=== PATIENT | female | born 1960 | race Caucasian/White ===

== ENCOUNTER 2019-12-27 07:54 | Outpatient (CLI) | payer OTHER, SELFPAY ==
--- NOTE | 2019-12-27 15:50 | DI.MAMMO_ITS ---
EXAM: MG MAMMO SCREENING CLINICAL HISTORY: SCREENING, Z12.31 TECHNIQUE: Bilateral full field digital CC and MLO mammographic images were obtained with 3D tomosyn thesis and utilizing computer aided detection (CAD). COMPARISON: Available for comparison. FINDINGS: Masses/Architectural Distortion: None seen. Microcalcifications: No suspicious pleomorphic-type are seen. Skin Thickening/Nipple Retraction: None. IMPRESSION: 1. No significant interval change with no specific features of malignancy noted. 2. Unless there is more urgent need, screening mammography is recommended, as per [employer] guidelines. BI-RADS Category 1 - Negative Breast Density - Category B - Scattered areas of fibroglandular density A negative radiographic report should not delay biopsy if a dominant or clinically suspicious mass is present. Up to ten percent of cancers are not identified on mammography. A negative report may reinforce clinical impression. Adenosis and dense breasts may obscure an underlying neoplasm. False positive reports average 6 to 10%. Patient will receive a letter notifying them of these results.
== END 2019-12-27 08:14 ==
PROVIDERS: PCP Family Medicine Adult Medicine; Visit Provider General Practice
DX: Z12.31 Encounter for screening mammogram for malignant neoplasm of breast (principal)
CPT/HCPCS: 77063; 77067

== ENCOUNTER 2020-12-27 03:59 | Outpatient (CLI) | payer BC, SELFPAY ==
--- NOTE | 2020-12-27 | DI.MAMMO_ITS ---
Exam(s) MAMMO SCREENING EXAM: MAMMO SCREENING CLINICAL HISTORY: SCREENING, Z12.31 TECHNIQUE: Mammograms were interpreted according to the usual protocol including computer analysis w [employer] CAD system, tomosynthesis and C-view imaging. COMPARISON: FINDINGS: The breasts are of moderate density with fairly symmetrical distribution of fibroglandular tissue. N o dominant mass or clumped microcalcification is identified in either breast. The current examinatio n is compared with previous examinations including December 2019 and there is increased prominence of a fo giacomo area asymmetric density projected in the central portion of the right breast on the MLO view, thi s may also be present medially on the CC view. Additional mammographic views of the right breast are requested including CC and MLO spot compression views to rule out a new mass. No other significant change seen. IMPRESSION: Additional mammographic views of the right breast requested as described above. Breast ultrasound ma y be indicated as well depending on the results of the additional mammographic views. BI-RADS Category 0 - Assessment Incomplete: Need additional imaging evaluation Breast Density - Category B - Scattered areas of fibroglandular density
== END 2020-12-27 04:19 ==
PROVIDERS: PCP Family Medicine Adult Medicine; Visit Provider General Practice
DX: Z12.31 Encounter for screening mammogram for malignant neoplasm of breast (principal)
CPT/HCPCS: 77063; 77067

== ENCOUNTER 2021-01-02 01:36 | Outpatient (CLI) | payer BC, SELFPAY ==
--- NOTE | 2021-01-02 | DI.US_ITS ---
Exam(s) US BREAST RT LIMITED EXAM: US BREAST RT LIMITED CLINICAL HISTORY: F/U MAMMO, INCREASED ASYMMETRIC DENSITY, ? MASS. TECHNIQUE: Limited ultrasound of the right breast was performed. COMPARISON: Prior mammograms were reviewed. ALSO REVIEWED TODAY'S DIAGNOSTIC RIGHT BREAST MAMMOGRAM FINDINGS: There are no ultrasound findings correspond to the area of possible concern seen on the mammogram. T his is commensurate with the fact that this area is less concerning on the additional spot compressio n 3D mammographic views performed today prior to performing this ultrasound. However, there are 2 small microcysts noted, both measuring 3 millimeters, these located at the 12:00 to 1:00 positions. These are not seen on 3D mammography. IMPRESSION: Benign findings as described above. Appropriate follow-up is to keep this patient yearly mammogram schedule, with earlier imaging if a se lf detected breast change is noted BI-RADS Category 2 - Benign Findings Breast Density - Category B - Scattered areas of fibroglandular density Breast density Category C or D implies that the patient has dense breast tissue. Dense breast tissue can make it harder to find cancer on a mammogram. Dense breast tissue is also associated with an incr eased risk of breast cancer. This information about the result of the mammogram report was provided to the patient to raise their awareness. Use this report when you speak with the patient about their risks for breast cancer, which includes their family history. At that time, you may recommend additional screening tests (Ultrasoun d or MRI) as these tests may add significant information. A negative radiographic report should not delay biopsy if a dominant or clinically suspicious mass is present. Up to ten percent of cancers are not identified on mammography. A negative report may reinforce clinical impression. Adenosis and dense breasts may obscure an underlying neoplasm. False positive reports average 6 to 10%. Patient will receive a letter notifying them of these results.
--- NOTE | 2021-01-02 13:50 | DI.MAMMO_ITS ---
Exam(s) MAMMO SCREEN CALL BACK UNI EXAM: MAMMO SCREEN CALL BACK UNI CLINICAL HISTORY: F/U MAMMO, INCREASED ASYMMETRIC DENSITY,? NEW MASS. TECHNIQUE: Unilateral spot mammographic images were obtained with 3D tomosynthesis and utilizing com puter aided detection (CAD). . Limited right breast Ultrasound was also performed. COMPARISON: Prior mammograms were reviewed. This additional imaging was performed due to findings described on the recent screening mammogram of . FINDINGS: Additional mammographic views performed todayrender this area less concerning. Ultrasound performed today reveals no focal ultrasound findings at this location. However, there are 2 small microcysts evident, both measuring 3 millimeters, these at the 12 o'clock and 1 o'clock posi tions. See separate breast ultrasound report IMPRESSION: No radiographic evidence of malignancy. Benign ultrasound findings as described above and on the separate ultrasound report Appropriate follow-up is to keep this patient yearly mammogram schedule, with earlier imaging if a se lf detected breast change is noted. BI-RADS Category 2 - Benign Findings Breast Density - Category B - Scattered areas of fibroglandular density Breast density Category C or D implies that the patient has dense breast tissue. Dense breast tissue can make it harder to find cancer on a mammogram. Dense breast tissue is also associated with an incr eased risk of breast cancer. This information about the result of the mammogram report was provided to the patient to raise their awareness. Use this report when you speak with the patient about their risks for breast cancer, which includes their family history. At that time, you may recommend additional screening tests (Ultrasoun d or MRI) as these tests may add significant information. A negative radiographic report should not delay biopsy if a dominant or clinically suspicious mass is present. Up to ten percent of cancers are not identified on mammography. A negative report may reinforce clinical impression. Adenosis and dense breasts may obscure an underlying neoplasm. False positive reports average 6 to 10%. Patient will receive a letter notifying them of these results.
== END 2021-01-02 01:56 ==
PROVIDERS: PCP Family Medicine Adult Medicine; Visit Provider General Practice
DX: Z12.31 Encounter for screening mammogram for malignant neoplasm of breast (principal); R92.8 Other abnormal and inconclusive findings on diagnostic imaging of breast; N60.11 Diffuse cystic mastopathy of right breast
CPT/HCPCS: 76642; 77063; 77067

== ENCOUNTER 2021-02-25 11:07 | Outpatient (CLI) | payer BC, SELFPAY ==
[2021-02-27 11:30] LABS: COVID-19 RT-PCR UVMMC Result Negative (Negative)
== END 2021-02-25 11:08 | disposition home or self-care (01) ==
PROVIDERS: PCP Family Medicine Adult Medicine; Visit Provider Family Medicine Adult Medicine
DX: Z20.822 Contact with and (suspected) exposure to COVID-19 (principal)
CPT/HCPCS: U0003

== ENCOUNTER → 2022-01-01 02:25 | Outpatient (CLI) | payer BC, SELFPAY ==
--- NOTE | 2022-01-01 15:10 | DI.MAMMO_ITS ---
Exam(s) MAMMO SCREENING EXAM: MAMMO SCREENING CLINICAL HISTORY: SCREENING, Z12.31 TECHNIQUE: Bilateral full field digital CC and MLO mammographic images were obtained with 3D tomosyn thesis and utilizing computer aided detection (CAD). COMPARISON: Available for comparison. FINDINGS: Masses/Architectural Distortion: None seen. Microcalcifications: No suspicious pleomorphic-type are seen. Skin Thickening/Nipple Retraction: None. IMPRESSION: 1. No significant interval change with no specific features of malignancy noted. 2. Unless there is more urgent need, screening mammography is recommended, as per [employer] guidelines. BI-RADS Category 1 - Negative Breast Density - Category B - Scattered areas of fibroglandular density Breast density category C or D implies that the patient has dense breast tissue. Dense breast tissue is very common and is not abnormal but dense breast tissue can make it harder to find cancer on a ma mmogram. Also, dense breast tissue may increase their breast cancer risk. This information about the result of the mammogram report was provided to the patient to raise their awareness. Use this report when you speak with the patient about their risks for breast cancer, which includes their family hist ory. At that time, you may recommend for more screening tests (Ultrasound or MRI) as they might be us eful based on their risk. A negative radiographic report should not delay biopsy if a dominant or clinically suspicious mass is present. Up to ten percent of cancers are not identified on mammography. A negative report may reinforce clinical impression. Adenosis and dense breasts may obscure an underlying neoplasm. False positive reports average 6 to 10%. Patient will receive a letter notifying them of these results.
== END ==
PROVIDERS: PCP Family Medicine Adult Medicine; Visit Provider General Practice
DX: Z12.31 Encounter for screening mammogram for malignant neoplasm of breast (principal)
CPT/HCPCS: 77063; 77067

== ENCOUNTER 2022-10-20 18:30 | Emergency (ER) | payer OTHER, SELFPAY ==
[2022-10-20 18:31] VITALS: BP 159/82; PULSE 84; RESP 16; TEMP 36.7; O2SAT 96
--- OUTSIDE RECORDS SUMMARY | 2022-10-20 19:03 | XMS_ITS ---
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 Active 568803031 Problem Ulcerative (chronic) pancolitis without complications K51.00 Active 404631387 Problem Vitamin B deficiency, unspecified E53.9 Active 15694469 Problem Adjustment disorder with anxiety F43.22 Active 35643783 Problem Vitamin D deficiency, unspecified E55.9 Active 99984319 Problem Postmenopausal atrophic vaginitis N95.2 Active 81825856 Problem Generalized anxiety disorder F41.1 Active 32547843 Problem Ileostomy status Z93.2 Active 9131873 02 Problem Crohn's disease of both small and large intestine with fistula K50.813 Active [id number] 2 ALLERGIES Substance Reaction Event Type Date Status Sulfur Unknown Drug Allergy Apr, Active ENCOUNTERS Encounter Location Date Diagnosis [facility] [address] [place] [address] Sep, Sprain of ligaments of lumbar spine, initial encounter S33.5XXA [address] [address] Jul, Sprain of ligaments of lumbar spine, initial encounter S33.5XXA [address] [place] [address] 08 Apr, 2022 Abnormal finding of blood chemistry, unspecified R79.9 ; Orthostatic hypotension I95.1 ; Ulcerative (chronic) pancolitis without complications K51.00 ; Generalized anxiety disorder F41.1 and Dizziness and giddiness R42 [address] [place] [address] 04 Mar, 2022 Sprain of ligaments of lumbar spine, initial encounter S33.5XXA [address] [place] [address] 12 Nov, 2021 Sprain of ligaments of lumbar spine, initial encounter S33.5XXA [address] [place] [address] 10 Oct, 2021 Encounter for general adult medical examination without abnormal findings Z00.00 ; Encounter for screening mammogram for malignant neoplasm of breast Z12.31 ; Vitamin B deficiency, unspecified E53.9 ; Vitamin D deficiency, unspecified E55.9 ; Acute upper respiratory infection, unspecified J06.9 ; Generalized anxiety disorder F41.1 and Sprain of ligaments of lumbar spine, initial encounter S33.5XXA [address] [place] [address] 03 Aug, 2021 Cough, unspecified R05.[address] [place] [address] 19 Jun, [address] [place] [address] 12 May, [address] [place] [address] 22 Apr, [address] [place] [address] 19 Feb, 2021 Contact with and (suspected) exposure to COVID-19 Z20.[address] [place] [address] December, [address] [place] [address] 10 Oct, 2020 Encounter for general adult medical examination without abnormal findings Z00.00 ; Encounter for screening mammogram for malignant neoplasm of breast Z12.31 ; Ulcerative (chronic) pancolitis without complications K51.00 ; Crohn's disease of both small and large intestine with fistula K50.813 ; Vitamin D deficiency, unspecified E55.9 and Encounter for screening for malignant neoplasm of cervix Z12.[address] [place] [address] 08 Oct, [address] [place] [address] 03 Jul, [address] [place] [address] 17 Jun, 2020 Headache, unspecified R51.9 and Contusion of other part of head, initial encounter S00.83XA [address] [place] [address] 14 Feb, 2020 Arthropathy, unspecified M12.[address] [place] [address] 04 Oct, 2019 Encounter for general adult medical examination without abnormal findings Z00.00 ; Encounter for screening mammogram for malignant neoplasm of breast Z12.31 ; Vitamin B deficiency, unspecified E53.9 and Anemia, unspecified D64.[address] [place] [address] 18 Sep, 2019 Arthropathy, unspecified M12.[address] [place] [address] 17 Aug, 2019 Adjustment disorder with anxiety F43.22 and Crohn's disease of both small and large intestine with fistula K50.[address] [place] [address] May, Arthropathy, unspecified M12.[address] [place] [address] Jan, [address] [place] [address] December, Arthropathy, unspecified M12.[address] [place] [address] 13 Oct, 2018 Anemia, unspecified D64.9 ; Ulcerative (chronic) pancolitis without complications K51.00 and Ileostomy status Z93.[address] [place] [address] 27 Sep, 2018 Encounter for general adult medical examination without abnormal findings Z00.00 ; Encounter for screening mammogram for malignant neoplasm of breast Z12.31 ; Arthropathy, unspecified M12.9 ; Ulcerative (chronic) pancolitis without complications K51.00 ; Generalized anxiety disorder F41.1 ; Disorder of kidney and ureter, unspecified N28.9 and Other primary ovarian failure E28.[address] [place] [address] 17 Jul, 2018 Arthropathy, unspecified M12.[address] [address] Jun, Encounter for immunization Z23 and Dorsalgia, unspecified M54.[address] [place] [address] Jun, Dorsalgia, unspecified M54.[address] [place] [address] May, Dorsalgia, unspecified M54.[address] [place] [address] Apr, Dorsalgia, unspecified M54.[address] [place] [address] Apr, Dorsalgia, unspecified M54.[address] [place] [address] Apr, Abnormal finding of blood chemistry, unspecified R79.[address] [place] [address] Mar, Abnormal finding of blood chemistry, unspecified R79.[address] [place] [address] December, Disorder of kidney and ureter, unspecified N28.9 ; Arthropathy, unspecified M12.9 ; Abnormal finding of blood chemistry, unspecified R79.9 and Generalized anxiety disorder F41.[address] [place] [address] December, [address] [place] [address] December, [address] [place] [address] Nov, Generalized anxiety disorder F41.[address] [place] [address] Nov, Encounter for general adult medical examination without abnormal findings Z00.00 and Abnormal finding of blood chemistry, unspecified R79.[address] [place] [address] Sep, Encounter for general adult medical examination without abnormal findings Z00.00 ; Encounter for screening mammogram for malignant neoplasm of breast Z12.31 and Acute vaginitis N76.[address] [place] [address] Jul, Dorsalgia, unspecified M54.[address] [place] [address] Jul, Dorsalgia, unspecified M54.[address] [place] [address] Jul, Dorsalgia, unspecified M54.[address] [place] [address] Jun, Dorsalgia, unspecified M54.9 and Encounter for immunization Z23 [address] [place] [address] Jun, [address] [place] [address] Jan, Generalized anxiety disorder F41.[address] [place] [address] December, [address] [place] [address] Oct, Acute bronchitis, unspecified J20.9 and Hypo-osmolality and hyponatremia E87.[address] [place] [address] Aug, Encounter for general adult medical examination without abnormal findings Z00.00 ; Arthropathy, unspecified M12.9 ; Vitamin B deficiency, unspecified E53.9 and Postmenopausal atrophic vaginitis N95.[address] [place] [address] Jul, Encounter for screening mammogram for malignant neoplasm of breast Z12.[address] [place] [address] 28 Jan, 2016 Dorsalgia, unspecified M54.9 and Dyspareunia N94.[address] [place] [address] 14 Jan, 2016 Dorsalgia, unspecified M54.9 and Urinary tract infection, site not specified N39.[address] [place] [address] Jul, Encounter for general adult medical examination without abnormal findings Z00.00 ; Encounter for screening mammogram for malignant neoplasm of breast Z12.31 and Other specified disorders of bone density and structure, unspecified site M85.[address] [place] [address] Nov, Routine general medical examination at health care facility V70.[address] [place] [address] Nov, [address] [place] [address] Jul, [address] [place] [address] Jul, Routine general medical examination at health care facility V70.0 and Unspecified vitamin B deficiency 266.[address] [place] [address] May, pelvic pain-female 625.9 and ovarian cyst 620.[address] [place] [address] May, [address] [place] [address] May, [address] [place] [address] May, ovarian cyst 620.[address] [place] [address] May, [address] [place] [address] May, Sciatica 724.[address] [place] [address] 07 May, [address] [place] [address] Apr, Unspecified vitamin B deficiency 266.9 ; fatigue 780.79 and Sciatica 724.[address] [place] [address] Apr, [address] [place] [address] Apr, Sciatica 724.3 and Influenza vaccine V04.[address] [place] [address] December, arthritis, unspecified 716.90 ; Unspecified vitamin B deficiency 266.9 and DTaP vaccine V06.[address] [place] [address] Jul, Routine general medical examination at health care facility V70.[address] [place] [address] Jul, [address] [place] [address] Jul, [address] [place] [address] Jul, [address] [place] [address] Jun, Routine general medical examination at health care facility V70.0 ; Unspecified vitamin B deficiency 266.9 ; Influenza vaccine V04.81 and ear wax 380.[address] [place] [address] Jun, [address] [place] [address] Jun, [address] [place] [address] May, [address] [place] [address] May, [address] [place] [address] Apr, [address] [place] [address] December, arthritis, unspecified 716.90 ; Mills ulcerative (chronic) colitis 556.6 and Vitamin B<SUB>6</SUB>deficiency 266.[address] [place] [address] Sep, [address] [address] Aug, [address] [address] Jul, [address] [place] [address] Jul, [address] [place] [address] Jun, arthritis, unspecified 716.90 ; Screening for unspecified condition V82.9 ; Routine general medical examination at health care facility V70.0 ; Need for prophylactic vaccination and inoculation, Influenza V04.81 and Screening mammo V76.[address] [place] [address] Feb, [address] [place] [address] December, Unspecified vitamin B deficiency 266.9 ; arthritis, unspecified 716.90 and Mills ulcerative (chronic) colitis 556.[address] [place] [address] Aug, [address] [place] [address] Jun, [address] [place] [address] Jun, Need for prophylactic vaccination and inoculation, Influenza V04.81 ; arthritis, unspecified 716.90 and Unspecified vitamin B deficiency 266.[address] [place] [address] Apr, fatigue 780.79 ; arthritis, unspecified 716.90 ; Unspecified vitamin B deficiency 266.9 ; Mills ulcerative (chronic) colitis 556.6 and Generalized anxiety disorder 300.02
--- NOTE | 2022-10-20 19:43 | ED.GENADUL_ITS ---
Discharge Plan Disposition Patient Disposition: Home Discharge Details Clinical Impression: Fall (on) (from) other stairs and steps, initial encounter, Enchondroma of bone Primary Care Provider: Heron Caputo ED Provider: Freya Villalba Discharge Instructions Instructions: Fall Prevention (ED) Additional Instructions: No evidence of fractures or broken bones on the x-rays. There is a density in the distal femur which may represent enchondroma which is a benign tumor or developing from cartilage. Please follow-up with orthopedics or your primary care provider if you continue to have pain. Please take Tylenol or Ibuprofen with food every 4-6 hours as needed for pain and swelling. Use the crutches as needed, toe-touch weightbearing advance as tolerated. Referrals: Heron Caputo [Primary Care Provider] - 3 days Andrew Salas MD [ [facility] STAFF PHYSICIAN] - 2 weeks Medical Decision Making 62-year-old female presents to the ER with chief complaint of right hip and thigh pain status post a fall prior to arrival. Patient states that her hip gave out on her and she fell down 3 stairs. She denies hitting her head no neck or back pain. She is complaining of right thigh pain. She does have distal CMS intact. X-ray hip and femur ordered, Percocet p.o. Discussed x-ray results with patient who verbalized understanding. I did review images with her and her family. Patient was given crutches and home care she verbalized understanding. This text was generated using [employer] dictation system, please disregard any oddities of phrase or misspellings. Imaging Data Radiologic Study: Imaging: X-Ray Radiologist's impression: Imaging protocol: Radiologic exam of the pelvis. Views: 1 or 2 view. COMPARISON: No relevant prior studies available. FINDINGS: Bones/joints: There is no evidence of acute fracture.There is no evidence of malalignment or dislocation. Mild degenerative changes in both hips Soft tissues: Unremarkable. IMPRESSION: There is no evidence of acute fracture.There is no evidence of malalignment or dislocation. Thank you for allowing us to participate in the care of your patient. Dictated and Authenticated by: eDn Pacheco MD Radiologic Study #2: Imaging: X-Ray Radiologist's impression: Imaging protocol: Radiologic exam of the right femur. Views: 2 views. COMPARISON: CR XR PELVIS AP 10/20/2022 8:04 PM FINDINGS: Bones/joints: There is no evidence of acute fracture.There is no evidence of malalignment or dislocation. Sclerotic density in the distal femoral diaphysis may represent bone infarct or enchondroma. Soft tissues: Unremarkable. IMPRESSION: 1. There is no evidence of acute fracture.There is no evidence of malalignment or dislocation. 2. Sclerotic density in the distal femoral diaphysis may represent bone infarct or enchondroma. Thank you for allowing us to participate in the care of your patient. Dictated and Authenticated by: Den Pacheco MD [facility] General Mode of arrival: wheelchair . Date/Time Provider Initiated Documentation: 10/20/22 18:35 . Limitations to Documentation: no limitations . Information obtained by: patient, family, RN notes reviewed and old records reviewed . HPI Narrative: 62-year-old female presents to the ER with chief complaint of right hip and thigh pain status post a fall prior to arrival. Patient states that her hip gave out on her and she fell down 3 stairs. She denies hitting her head no neck or back pain. She is complaining of right thigh pain. She does have distal CMS intact. She did land on her left knee. No history of surgeries to that leg. She did not take any medications prior to arrival. Related Data Allergies Allergy/AdvReac Type Severity Reaction Status Date / Time Sulfa (Sulfonamide Allergy Skin Rash Unverified 10/20/22 18:35 Antibiotics) General Stated Complaint: Orthopedic LINO: 4 Review of Systems All systems reviewed & are unremarkable except as noted in HPI and below Musculoskeletal Musculoskeletal: Reports as per HPI, Denies deformity and Reports arthralgias PFSH All Active Problems (Updated 10/20/22 @ 20:39 by Freya Villalba NP) Fall (on) (from) other stairs and steps, initial encounter (Acute) Enchondroma of bone (Acute) Social History Smoking/Tobacco Use Status: Never Smoking risk assessment performed?: Yes Alcohol Intake: current Alcohol Intake frequency: a few times a week Alcohol type: beer Drug use: Never Substance use type: does not use Do you feel safe at home: Yes Do you feel safe in your relationship?: Yes Exam Narrative Exam Narrative: General: Well Developed, Awake and Alert, conversant. Skin: Warm and Dry HEENT: Head: No palpable deformities, Normocephalic Eyes: Pupils PERRLA, EOM's intact. No periorbital eccymosis or step off Ears: Canal patent. Tympanic membranes are clear . No burns's sign, no hemptympanum. Nose/Face: Atraumatic. Facial bones nontender to palpation and stable with manipulation. Mouth/Throat: No intraoral trauma. Teeth and mandible are intact. Neck: No midline tenderness, no step off, no deformity to palpation of C-spine. Trachea midline. Chest: No surface trauma. Nontender without crepitus or deformity. Lungs clear to ausculatation bilaterally. Heart: RRR, no rubs, murmurs or gallop. Abdomen: No abrasions, ecchymosis, or surface trauma. Nondistended. Nontender to palpation no guarding, rebound, or rigidity. Pelvis: Nontender to palpation and stable to compression. Femoral pulses strong and equal Extremities: no surface trauma. Sensation intact. Peripheral pulses intact and equal. Neuro: ANO x4, GCS 15, cranial nerves II through XII intact. Motor and sensory exam nonfocal. Reflexes are symmetric. Course Vital Signs Vital signs: Vital Signs Temperature 36.7 C 10/20/22 18:31 Pulse 84 10/20/22 18:31 Respiratory Rate 16 10/20/22 18:31 Blood Pressure 159/82 H 10/20/22 18:31 Pulse Oximetry 96 10/20/22 18:31 Temperature 36.7 C 10/20/22 18:31 Temperature Source Oral 10/20/22 18:31 Pulse 84 10/20/22 18:31 Respiratory Rate 16 10/20/22 18:31 Blood Pressure 159/82 H 10/20/22 18:31 Blood Pressure Position Sitting 10/20/22 18:31 Pulse Oximetry 96 10/20/22 18:31 Oxygen Delivery Method Room Air 10/20/22 18:31 Oxygen Flow Rate 0 10/20/22 18:31 Pain Level 3 10/20/22 18:31
[2022-10-20] MEDS: oxyCODONE 5 mg/Acetaminophen 325 mg TAB 1 TAB PO (19:50)
--- NOTE | 2022-10-20 20:08 | DI.RAD_ITS ---
Exam(s) XR PELVIS AP XR FEMUR RT EXAM: XR PELVIS AP and XR femur RT CLINICAL HISTORY: Fall. TECHNIQUE: 2D digital imaging was performed. Five images were obtained. COMPARISON: No priors for comparison. FINDINGS: BONES: No acute fracture is present. No bony destructive lesion is seen. There is a sclerotic lesion within the central distal femoral diaphysis likely representing a bone infarct or enchondroma. JOINTS: No dislocation present. No joint space narrowing is present. SOFT TISSUE: Normal. IMPRESSION: 1. No acute fracture or dislocation. 2. Sclerotic density in the distal femoral diaphysis likely reflecting a bone infarct or enchondroma. DATA REPOSITORY: RADIATION DOSE DELIVERED:
--- NOTE | 2022-10-20 20:36 | DI.VRAD_ITS ---
PROCEDURE INFORMATION: Exam: XR Pelvis Exam date and time: 10/20/2022 8:04 PM Age: 62 years old Clinical indication: Hip pain; Right hip TECHNIQUE: Imaging protocol: Radiologic exam of the pelvis. Views: 1 or 2 view. COMPARISON: No relevant prior studies available. FINDINGS: Bones/joints: There is no evidence of acute fracture.There is no evidence of malalignment or dislocation. Mild degenerative changes in both hips Soft tissues: Unremarkable. IMPRESSION: There is no evidence of acute fracture.There is no evidence of malalignment or dislocation. Dictated and Authenticated by: Den Pacheco MD. Ordering:ANTONETTE Pillai MD
--- NOTE | 2022-10-20 20:36 | DI.VRAD_ITS ---
PROCEDURE INFORMATION: Exam: XR Right Femur Exam date and time: 10/20/2022 8:05 PM Age: 62 years old Clinical indication: Pain; Thigh; Right TECHNIQUE: Imaging protocol: Radiologic exam of the right femur. Views: 2 views. COMPARISON: CR XR PELVIS AP 10/20/2022 8:04 PM FINDINGS: Bones/joints: There is no evidence of acute fracture.There is no evidence of malalignment or dislocation. Sclerotic density in the distal femoral diaphysis may represent bone infarct or enchondroma. Soft tissues: Unremarkable. IMPRESSION: 1. There is no evidence of acute fracture.There is no evidence of malalignment or dislocation. 2. Sclerotic density in the distal femoral diaphysis may represent bone infarct or enchondroma. Dictated and Authenticated by: Den Pacheco MD. Ordering:ANTONETTE Pillai MD
[2022-10-20 20:58] VITALS: BP 173/72; PULSE 89; RESP 18; O2SAT 96
== END 2022-10-20 21:11 | disposition home or self-care (01) ==
PROVIDERS: Emergency Provider Registered Nurse Emergency; PCP Family Medicine Adult Medicine
DX: D16.21 Benign neoplasm of long bones of right lower limb (principal); W10.8XXA Fall (on) (from) other stairs and steps, initial encounter; M25.551 Pain in right hip
CPT/HCPCS: 73552; 99284; 72170; 99283

== ENCOUNTER 2023-01-06 02:12 | Outpatient (CLI) | payer BC, SELFPAY ==
--- NOTE | 2023-01-06 15:15 | DI.MAMMO_ITS ---
Exam(s) MAMMO SCREENING EXAM: MAMMO SCREENING CLINICAL HISTORY: SCREENING, Z12.31 TECHNIQUE: Mammograms were interpreted according to the usual protocol including computer analysis w [employer] CAD system, tomosynthesis and C-view imaging. COMPARISON: 2019 and 2021 FINDINGS: The breasts are composed of scattered fibroglandular densities, Breast Density category B. No suspicious masses or suspicious microcalcifications are seen. No skin thickening or abnormal axillary lymph nodes are seen. There has been no significant change from prior exams. IMPRESSION: BI-RADS Category 1, Negative mammogram Yearly screening mammography is recommended. Breast Density - Category B, scattered fibroglandular densities. A negative radiographic report should not delay biopsy if a dominant or clinically suspicious mass is present. Up to ten percent of cancers are not identified on mammography. A negative report may reinforce clinical impression. Adenosis and dense breasts may obscure an underlying neoplasm. False positive reports average 6 to 10%. Patient will receive a letter notifying them of these results.
== END 2023-01-06 02:32 ==
LOC: DI 02:12
PROVIDERS: PCP Family Medicine Adult Medicine; Visit Provider General Practice
DX: Z12.31 Encounter for screening mammogram for malignant neoplasm of breast (principal)
CPT/HCPCS: 77063; 77067

== ENCOUNTER 2023-01-14 16:04 | Outpatient (CLI) | payer BC, SELFPAY ==
[2023-01-14 16:56] LABS: Absolute Basophil Count 0.09 10^3/uL (0.0-0.2); Absolute Eosinophil Count 0.55 10^3/uL (0.0-0.7); Absolute Lymphocyte Count 1.13 10^3/uL (1.2-3.4); Absolute Monocyte Count 0.49 10^3/uL (0.1-0.8); Absolute Neutrophil Count 3.57 10^3/uL (1.2-6.7); Basophils % 1.5; ESR 1 mm/hr (0-30); Eosinophils % 9.4; HCT 41.5 % (36.0-46.0); HGB 14.4 g/dL (11.2-15.7); Lymphocytes % 19.4; MCH 32.7 pg (27.0-33.0); MCHC 34.7 % (32.0-36.0); MCV 94 fL (80-95); MPV 10.6 fL (8.0-11.0); Monocytes % 8.4; Neutrophils % 61.3; Platelet Count 190 10^3/uL (130-400); RDW 12.5 % (11.7-14.6); RDW-SD 43.3 fL; WBC 5.83 10^3/uL (4.4-10.8)
[2023-01-14 18:33] LABS: Iron 115 ug/dL (50-170); Total Iron Binding Capacity 447 ug/dL (250-450); Transferrin Sat 26 % (15-50)
[2023-01-14 18:48] LABS: ALT 43 U/L (14-59); AST 22 U/L (15-37); Albumin 3.6 g/dL (3.4-5.0); Alkaline Phosphatase 67 U/L (46-116); Anion Gap 8.1 mmol/L (3-11); BUN 22 mg/dL (7-18); Bilirubin, Total 0.4 mg/dL (0.2-1.0); CO2 27.9 mmol/L (21.0-32.0); Calcium 9.2 mg/dL (8.5-10.1); Chloride 103 mmol/L (98-107); Estimated GFR 64.49 (mL/min/1.73m2); Ferritin 22 ng/mL (8-252); Glucose 125 mg/dL (74-106); Potassium 3.5 mmol/L (3.5-5.1); Sodium 139 mmol/L (136-145); Total Protein 7.2 g/dL (6.4-8.2); Vitamin B12 482 pg/mL (193-986)
[2023-01-14 18:57] LABS: C-Reactive Protein < 0.05 mg/dL (0.0-0.3)
[2023-01-14 18:59] LABS: Vitamin D 25 Total 27.7 ng/mL (30-100)
[2023-01-14 19:50] LABS: C Diff PCR Negative (Negative)
[2023-01-18 10:37] LABS: HBs Antibody, Quant <3.1 mIU/mL (See Note); Hepatitis B Surface Ab Negative (See Note)
[2023-01-18 11:04] LABS: Hepatitis B Surface Ag Negative (Negative)
[2023-01-18 11:39] LABS: Hepatitis C Ab w Rflx HCV PCR Negative (Negative)
[2023-01-18 11:43] LABS: Hep B Core Antibody Negative (Negative)
[2023-01-18 13:24] LABS: TB Interpretation Negative (Negative)
[2023-01-18 17:18] LABS: Calprotectin <50.0 mcg/g
== END 2023-01-14 16:05 | disposition home or self-care (01) ==
LOC: LBO 16:05
PROVIDERS: PCP Family Medicine Adult Medicine; Visit Provider Nurse Practitioner Adult Health
DX: K50.018 Crohn's disease of small intestine with other complication (principal)
CPT/HCPCS: 36415; 80053; 82306; 85652; 86704; 86706; 86803; 87340; 87493; 82607; 82728; 83540; 83550; 83993; 85025; 86140; 86480

== ENCOUNTER 2023-01-28 01:59 | Outpatient (RCR) | payer BC, SELFPAY ==
[2023-01-28 13:56] LABS: HCT 41.2 % (36.0-46.0); HGB 14.2 g/dL (11.2-15.7); MCH 32.5 pg (27.0-33.0); MCHC 34.5 % (32.0-36.0); MCV 94 fL (80-95); MPV 10.4 fL (8.0-11.0); Platelet Count 205 10^3/uL (130-400); RBC 4.37 10^6/uL (3.93-5.22); RDW 12.5 % (11.7-14.6); RDW-SD 42.8 fL; WBC 7.75 10^3/uL (4.4-10.8)
[2023-01-28] MEDS: Normal Saline Flush 10 ML SYR IVP (14:01)
[2023-01-28] MEDS: VEDOLIZUMAB 300 MG in Normal Saline 250 ML 500 MG IVPB (14:01)
[2023-01-28 14:03] LABS: ALT 51 U/L (14-59); AST 33 U/L (15-37); Albumin 3.6 g/dL (3.4-5.0); Alkaline Phosphatase 64 U/L (46-116); Bilirubin, Direct 0.1 mg/dL (0.0-0.2); Bilirubin, Total 0.6 mg/dL (0.2-1.0); C-Reactive Protein 0.06 mg/dL (0.0-0.3); Total Protein 7.1 g/dL (6.4-8.2)
== END 2023-02-05 23:59 | disposition home or self-care (01) ==
LOC: INF 01:59
PROVIDERS: PCP Family Medicine Adult Medicine; Visit Provider Nurse Practitioner Acute Care
DX: K50.018 Crohn's disease of small intestine with other complication (principal)
CPT/HCPCS: 36415; 80076; 85027; 96365; 86140; J3380

== ENCOUNTER 2023-02-11 02:55 | Outpatient (RCR) | payer BC, SELFPAY ==
[2023-02-11] MEDS: Normal Saline Flush 10 ML SYR IVP (14:01)
[2023-02-11] MEDS: VEDOLIZUMAB 300 MG in Normal Saline 250 ML 500 MG IVPB (14:01)
== END 2023-03-08 23:59 | disposition home or self-care (01) ==
LOC: INF 02:55
PROVIDERS: PCP Family Medicine Adult Medicine; Visit Provider Nurse Practitioner Acute Care
DX: K50.918 Crohn's disease, unspecified, with other complication (principal)
CPT/HCPCS: 96365; J3380

== ENCOUNTER 2023-03-11 03:48 | Outpatient (RCR) | payer BC, SELFPAY ==
[2023-03-11] MEDS: VEDOLIZUMAB 300 MG in Normal Saline 250 ML 500 MG IVPB (14:15)
[2023-03-11] MEDS: Normal Saline Flush 10 ML SYR IVP (14:17)
[2023-03-11 14:23] LABS: Abs Immature Grans 0.01 10^3/uL (0.0-0.06); Absolute Basophil Count 0.09 10^3/uL (0.0-0.2); Absolute Eosinophil Count 0.37 10^3/uL (0.0-0.7); Absolute Lymphocyte Count 1.46 10^3/uL (1.2-3.4); Absolute Monocyte Count 0.67 10^3/uL (0.1-0.8); Absolute Neutrophil Count 3.78 10^3/uL (1.2-6.7); Basophils % 1.4; Eosinophils % 5.8; HCT 39.9 % (36.0-46.0); HGB 13.7 g/dL (11.2-15.7); Immature Grans % 0.2; Lymphocytes % 22.9; MCHC 34.3 % (32.0-36.0); MCV 93 fL (80-95); MPV 10.2 fL (8.0-11.0); Monocytes % 10.5; Neutrophils % 59.2; Platelet Count 175 10^3/uL (130-400); RBC 4.28 10^6/uL (3.93-5.22); RDW 12.2 % (11.7-14.6); RDW-SD 42.1 fL; WBC 6.38 10^3/uL (4.4-10.8)
[2023-03-11 14:41] LABS: ALT 42 U/L (14-59); AST 30 U/L (15-37); Albumin 3.6 g/dL (3.4-5.0); Alkaline Phosphatase 63 U/L (46-116); Bilirubin, Direct 0.2 mg/dL (0.0-0.2); Bilirubin, Total 0.6 mg/dL (0.2-1.0); Total Protein 6.9 g/dL (6.4-8.2)
[2023-03-11 14:54] LABS: C-Reactive Protein < 0.05 mg/dL (0.0-0.3)
== END 2023-04-08 23:59 | disposition home or self-care (01) ==
LOC: INF 03:48
PROVIDERS: PCP Family Medicine Adult Medicine; Visit Provider Nurse Practitioner Acute Care
DX: K50.018 Crohn's disease of small intestine with other complication (principal)
CPT/HCPCS: 36415; 80076; 96365; 85025; 86140; J3380

== ENCOUNTER 2023-04-15 13:41 | Outpatient (CLI) | payer BC, SELFPAY ==
--- NOTE | 2023-04-15 09:34 | DI.RAD_ITS ---
Exam(s) XR FEMUR RT EXAM: XR FEMUR RT CLINICAL HISTORY: bone lesion follow up. TECHNIQUE: 2D digital imaging was performed of the right femur. Four images were obtained. AP and l ateral views were obtained. COMPARISON: CR,XR XR FEMUR RT from 10/20/2022 FINDINGS: BONES: No acute fracture is present. No bony destructive lesion is seen. Visualized portion of knee a nd hip joints are unremarkable. There is a stable sclerotic focus in the distal right femur. This li musa reflects a bone infarct or enchondroma. No periosteal reaction or destructive changes are seen to the bone. SOFT TISSUE: Normal. IMPRESSION: Stable sclerotic focus in the distal right femur. This likely reflects a benign lesion such as a bon e infarct or enchondroma. DATA REPOSITORY: RADIATION DOSE DELIVERED:
== END 2023-04-15 13:42 | disposition home or self-care (01) ==
LOC: DIORS 13:43
PROVIDERS: PCP Family Medicine Adult Medicine; Visit Provider Physician Assistant
DX: D16.21 Benign neoplasm of long bones of right lower limb (principal)
CPT/HCPCS: 73552

== ENCOUNTER 2023-05-06 04:52 | Outpatient (RCR) | payer BC, SELFPAY ==
[2023-05-06] MEDS: Normal Saline Flush 10 ML SYR IVP (13:45)
[2023-05-06] MEDS: VEDOLIZUMAB 300 MG in Normal Saline 250 ML 500 MG IVPB (14:03)
[2023-05-06 14:09] LABS: HGB 13.7 g/dL (11.2-15.7); MCH 31.8 pg (27.0-33.0); MCHC 34.3 % (32.0-36.0); MCV 93 fL (80-95); Platelet Count 175 10^3/uL (130-400); RBC 4.31 10^6/uL (3.93-5.22); RDW 12.3 % (11.7-14.6); RDW-SD 42.3 fL; WBC 5.64 10^3/uL (4.4-10.8)
[2023-05-06 14:22] LABS: ALT 44 U/L (14-59); AST 28 U/L (15-37); Albumin 3.5 g/dL (3.4-5.0); Alkaline Phosphatase 63 U/L (46-116); Bilirubin, Direct 0.2 mg/dL (0.0-0.2); Bilirubin, Total 0.5 mg/dL (0.2-1.0); C-Reactive Protein 0.11 mg/dL (0.0-0.3); Total Protein 7.2 g/dL (6.4-8.2)
[2023-05-12 11:00] LABS: Vedolizumab Ab <9.8 ng/mL (<9.8); Vedolizumab QN, S 14.6 mcg/mL
== END 2023-05-08 23:59 | disposition home or self-care (01) ==
LOC: INF 04:52
PROVIDERS: PCP Family Medicine Adult Medicine; Visit Provider Nurse Practitioner Acute Care
DX: K50.018 Crohn's disease of small intestine with other complication (principal)
CPT/HCPCS: 80076; 82397; 85027; 96365; 86140; J3380

== ENCOUNTER 2023-06-22 02:02 | Outpatient (CLI) | payer BC, SELFPAY | END 2023-06-22 02:03 | disposition home or self-care (01) | LOC: LBO 02:02 | PROVIDERS: PCP Family Medicine Adult Medicine; Visit Provider Nurse Practitioner Adult Health | DX: K50.018 Crohn's disease of small intestine with other complication (principal) | CPT/HCPCS: 36415; 82306 ==

== ENCOUNTER 2023-06-29 02:50 | Outpatient (RCR) | payer BC, SELFPAY ==
[2023-06-29] MEDS: VEDOLIZUMAB 300 MG in Normal Saline 250 ML 500 MG IVPB (14:02)
[2023-06-29] MEDS: Normal Saline Flush 10 ML SYR IVP (14:02)
== END 2023-07-08 23:59 | disposition home or self-care (01) ==
LOC: INF 02:50
PROVIDERS: PCP Family Medicine Adult Medicine; Visit Provider Nurse Practitioner Acute Care
DX: K50.018 Crohn's disease of small intestine with other complication (principal)
CPT/HCPCS: 96365; J3380

== ENCOUNTER 2023-08-26 04:05 | Outpatient (RCR) | payer BC, SELFPAY ==
[2023-08-26] MEDS: VEDOLIZUMAB 300 MG in Normal Saline 250 ML 500 MG IVPB (14:11)
[2023-08-26] MEDS: Normal Saline Flush 10 ML SYR IVP (14:12)
[2023-08-26 14:29] LABS: HGB 13.5 g/dL (11.2-15.7); MCH 32.1 pg (27.0-33.0); MCHC 33.8 % (32.0-36.0); MCV 95 fL (80-95); MPV 10.7 fL (8.0-11.0); Platelet Count 169 10^3/uL (130-400); RBC 4.21 10^6/uL (3.93-5.22); RDW 12.8 % (11.7-14.6); RDW-SD 43.8 fL; WBC 5.84 10^3/uL (4.4-10.8)
[2023-08-26 14:45] LABS: ALT 43 U/L (14-59); AST 29 U/L (15-37); Albumin 3.5 g/dL (3.4-5.0); Alkaline Phosphatase 56 U/L (46-116); Bilirubin, Direct 0.1 mg/dL (0.0-0.2); Bilirubin, Total 0.5 mg/dL (0.2-1.0); C-Reactive Protein 0.11 mg/dL (0.0-0.3); Total Protein 6.8 g/dL (6.4-8.2)
== END 2023-09-08 23:59 | disposition home or self-care (01) ==
LOC: INF 04:05
PROVIDERS: PCP Family Medicine Adult Medicine; Visit Provider Nurse Practitioner Acute Care
DX: K50.018 Crohn's disease of small intestine with other complication (principal)
CPT/HCPCS: 36415; 80076; 85027; 96365; 86140; J3380

== ENCOUNTER 2023-10-21 02:58 | Outpatient (RCR) | payer BC, SELFPAY ==
[2023-10-21] MEDS: VEDOLIZUMAB 300 MG in Normal Saline 250 ML 500 MG IVPB (14:07)
[2023-10-21] MEDS: Normal Saline Flush 10 ML SYR IVP (14:10)
== END 2023-11-07 23:59 | disposition home or self-care (01) ==
LOC: INF 02:58
PROVIDERS: PCP Family Medicine Adult Medicine; Visit Provider Nurse Practitioner Acute Care
DX: K50.018 Crohn's disease of small intestine with other complication (principal)
CPT/HCPCS: 96365; J3380

== ENCOUNTER 2023-12-17 01:10 | Outpatient (RCR) | payer BC, SELFPAY ==
[2023-12-17] MEDS: Normal Saline Flush 10 ML SYR IVP (08:19)
[2023-12-17] MEDS: VEDOLIZUMAB 300 MG in Normal Saline 250 ML 500 MG IVPB (08:53)
[2023-12-17 08:58] LABS: HCT 42.6 % (36.0-46.0); HGB 14.2 g/dL (11.2-15.7); MCH 31.3 pg (27.0-33.0); MCHC 33.3 % (32.0-36.0); MCV 94 fL (80-95); MPV 10.9 fL (8.0-11.0); Platelet Count 192 10^3/uL (130-400); RBC 4.53 10^6/uL (3.93-5.22); RDW 12.3 % (11.7-14.6); RDW-SD 42.2 fL; WBC 4.92 10^3/uL (4.4-10.8)
[2023-12-17 09:31] LABS: ALT 35 U/L (14-59); AST 28 U/L (15-37); Albumin 2.6 g/dL (3.4-5.0); Alkaline Phosphatase 49 U/L (46-116); Bilirubin, Direct 0.2 mg/dL (0.0-0.2); Bilirubin, Total 0.5 mg/dL (0.2-1.0); Total Protein 5.2 g/dL (6.4-8.2)
[2023-12-17 09:32] LABS: C-Reactive Protein < 0.50 mg/dL (<or=0.5)
== END 2024-01-07 23:59 | disposition home or self-care (01) ==
LOC: INF 01:10
PROVIDERS: PCP Family Medicine Adult Medicine; Visit Provider Nurse Practitioner Acute Care
DX: K50.918 Crohn's disease, unspecified, with other complication (principal)
CPT/HCPCS: 80076; 85027; 96365; 86140; J3380

== ENCOUNTER → 2024-01-10 03:04 | Outpatient (CLI) | payer BC, SELFPAY ==
--- NOTE | 2024-01-10 | DI.MAMMO_ITS ---
Exam(s) MAMMO SCREENING EXAM: MAMMO SCREENING CLINICAL HISTORY: SCREENING, Z12.31 TECHNIQUE: Bilateral full field digital CC and MLO mammographic images were obtained with 3D tomosyn thesis and utilizing computer aided detection (CAD). COMPARISON: Available for comparison. FINDINGS: Masses/Architectural Distortion: None seen. Microcalcifications: No suspicious pleomorphic-type are seen. Skin Thickening/Nipple Retraction: None. IMPRESSION: 1. No significant interval change with no specific features of malignancy noted. 2. Unless there is more urgent need, screening mammography is recommended, as per [employer] guidelines. BI-RADS Category 1 - Negative Breast Density - Category B - Scattered areas of fibroglandular density Breast density category C or D implies that the patient has dense breast tissue. Dense breast tissue is very common and is not abnormal but dense breast tissue can make it harder to find cancer on a ma mmogram. Also, dense breast tissue may increase their breast cancer risk. This information about the result of the mammogram report was provided to the patient to raise their awareness. Use this report when you speak with the patient about their risks for breast cancer, which includes their family hist ory. At that time, you may recommend for more screening tests (Ultrasound or MRI) as they might be us eful based on their risk. A negative radiographic report should not delay biopsy if a dominant or clinically suspicious mass is present. Up to ten percent of cancers are not identified on mammography. A negative report may reinforce clinical impression. Adenosis and dense breasts may obscure an underlying neoplasm. False positive reports average 6 to 10%. Patient will receive a letter notifying them of these results.
== END ==
PROVIDERS: PCP Family Medicine Adult Medicine; Visit Provider General Practice
DX: Z12.31 Encounter for screening mammogram for malignant neoplasm of breast (principal)
CPT/HCPCS: 77063; 77067

== ENCOUNTER 2024-02-14 03:12 | Outpatient (RCR) | payer BC, SELFPAY ==
[2024-02-14] MEDS: Normal Saline Flush 10 ML SYR IVP (08:58)
[2024-02-14] MEDS: VEDOLIZUMAB 300 MG in Normal Saline 250 ML 500 MG IVPB (08:58)
== END 2024-03-08 23:59 | disposition home or self-care (01) ==
LOC: INF 03:12
PROVIDERS: PCP Family Medicine Adult Medicine; Visit Provider Nurse Practitioner Acute Care
DX: K50.018 Crohn's disease of small intestine with other complication (principal)
CPT/HCPCS: 96365; J3380

== ENCOUNTER 2024-04-11 02:29 | Outpatient (RCR) | payer BC, SELFPAY ==
[2024-04-11] MEDS: VEDOLIZUMAB 300 MG in Normal Saline 250 ML 500 MG IVPB (08:52)
[2024-04-11] MEDS: Normal Saline Flush 10 ML SYR IVP (08:52)
[2024-04-11 09:21] LABS: HCT 40.6 % (36.0-46.0); HGB 13.9 g/dL (11.2-15.7); MCH 32.1 pg (27.0-33.0); MCHC 34.2 % (32.0-36.0); MCV 94 fL (80-95); MPV 10.7 fL (8.0-11.0); Platelet Count 174 10^3/uL (130-400); RBC 4.33 10^6/uL (3.93-5.22); RDW 12.7 % (11.7-14.6); RDW-SD 43.2 fL; WBC 4.91 10^3/uL (4.4-10.8)
[2024-04-11 09:48] LABS: ALT 40 U/L (14-59); AST 31 U/L (15-37); Albumin 3.6 g/dL (3.4-5.0); Alkaline Phosphatase 65 U/L (46-116); Bilirubin, Direct 0.2 mg/dL (0.0-0.2); Bilirubin, Total 0.65 mg/dL (0.2-1.0); C-Reactive Protein < 0.50 mg/dL (<or=0.5); Total Protein 7.2 g/dL (6.4-8.2)
== END 2024-05-08 23:59 | disposition home or self-care (01) ==
LOC: INF 02:29
PROVIDERS: Internal Medicine Gastroenterology; PCP Family Medicine Adult Medicine; Visit Provider Nurse Practitioner Acute Care
DX: K50.018 Crohn's disease of small intestine with other complication (principal)
CPT/HCPCS: 36415; 80076; 85027; 96365; 86140; J3380

== ENCOUNTER 2024-04-14 10:07 | Outpatient (CLI) | payer BC, SELFPAY ==
--- NOTE | 2024-04-14 09:00 | DI.RAD_ITS ---
Exam(s) XR FEMUR RT EXAM: XR FEMUR RT CLINICAL HISTORY: F/U R FEMUR LESION. TECHNIQUE: 2D digital imaging was performed of the right femur. Four images were obtained. AP and l ateral views were obtained. COMPARISON: CR XR FEMUR RT from 04/15/2023 FINDINGS: BONES: No acute fracture is present. No bony destructive lesion is seen. There has been no change in appearance of the central sclerotic lesion in the distal right femur. The overlying cortex is intact . There is no periosteal reaction. SOFT TISSUE: Normal. IMPRESSION: Stable distal right femoral lesion. This likely reflects a benign lesion such as a bone infarct or e nchondroma. DATA REPOSITORY: RADIATION DOSE DELIVERED:
== END 2024-04-14 10:08 | disposition home or self-care (01) ==
LOC: DIORS 10:07
PROVIDERS: PCP Family Medicine Adult Medicine; Referring Provider Family Medicine Adult Medicine; Visit Provider Physician Assistant
DX: D16.21 Benign neoplasm of long bones of right lower limb (principal)
CPT/HCPCS: 73552

== ENCOUNTER 2024-06-07 01:10 | Outpatient (RCR) | payer BC, SELFPAY ==
[2024-06-07] MEDS: Normal Saline Flush 10 ML SYR IVP (12:18)
[2024-06-07] MEDS: VEDOLIZUMAB 300 MG in Normal Saline 250 ML 500 MG IVPB (12:18)
== END 2024-06-08 23:59 | disposition home or self-care (01) ==
LOC: INF 01:10
PROVIDERS: PCP Family Medicine Adult Medicine; Visit Provider Nurse Practitioner Acute Care
DX: K50.018 Crohn's disease of small intestine with other complication (principal)
CPT/HCPCS: 96365; J3380

== ENCOUNTER 2024-07-27 02:24 | Outpatient (RCR) | payer BC, SELFPAY ==
[2024-07-27] MEDS: VEDOLIZUMAB 300 MG in Normal Saline 250 ML 500 MG IVPB (09:11)
[2024-07-27] MEDS: Normal Saline Flush 10 ML SYR IVP (09:11)
== END 2024-08-08 23:59 | disposition home or self-care (01) ==
LOC: INF 02:24
PROVIDERS: PCP Family Medicine Adult Medicine; Visit Provider Nurse Practitioner Acute Care
DX: K50.018 Crohn's disease of small intestine with other complication (principal)
CPT/HCPCS: 96365; J3380

== ENCOUNTER 2024-09-20 03:55 | Outpatient (RCR) | payer BC, SELFPAY ==
[2024-09-20] MEDS: VEDOLIZUMAB 300 MG in Normal Saline 250 ML 500 MG IVPB (09:27)
[2024-09-20] MEDS: Normal Saline Flush 10 ML SYR IVP (09:27)
== END 2024-10-06 23:59 | disposition home or self-care (01) ==
LOC: INF 03:55
PROVIDERS: PCP Family Medicine Adult Medicine; Visit Provider Nurse Practitioner Acute Care
DX: K50.018 Crohn's disease of small intestine with other complication (principal)
CPT/HCPCS: 96365; J3380

== ENCOUNTER 2024-11-15 01:44 | Outpatient (RCR) | payer BC, SELFPAY ==
[2024-11-15] MEDS: Normal Saline Flush 5 ML SYR IVP (09:40)
[2024-11-15] MEDS: VEDOLIZUMAB 300 MG in Normal Saline 250 ML 500 MG IVPB (09:40)
[2024-11-15 09:48] LABS: HCT 40.9 % (36.0-46.0); HGB 13.9 g/dL (11.2-15.7); MCV 91 fL (80-95); MPV 9.5 fL (8.0-11.0); Platelet Count 244 10^3/uL (130-400); RBC 4.49 10^6/uL (3.93-5.22); RDW 12.3 % (11.7-14.6); RDW-SD 40.6 fL; WBC 6.99 10^3/uL (4.4-10.8)
[2024-11-15 10:03] LABS: ALT 31 U/L (14-59); AST 21 U/L (15-37); Albumin 3.4 g/dL (3.4-5.0); Alkaline Phosphatase 82 U/L (46-116); Bilirubin, Direct 0.1 mg/dL (0.0-0.2); Bilirubin, Total 0.3 mg/dL (0.2-1.0); Total Protein 6.9 g/dL (6.4-8.2)
[2024-11-15 10:05] LABS: C-Reactive Protein < 0.50 mg/dL (<or=0.5)
== END 2024-12-06 23:59 | disposition home or self-care (01) ==
LOC: INF 01:44
PROVIDERS: Internal Medicine Gastroenterology; PCP Family Medicine Adult Medicine; Visit Provider Nurse Practitioner Acute Care
DX: K50.018 Crohn's disease of small intestine with other complication (principal)
CPT/HCPCS: 36415; 80076; 85027; 96365; 86140; J3380

== ENCOUNTER 2025-01-10 01:55 | Outpatient (RCR) | payer BC, SELFPAY ==
[2025-01-10] MEDS: Normal Saline Flush 10 ML SYR IVP (09:34)
[2025-01-10] MEDS: VEDOLIZUMAB 300 MG in Normal Saline 250 ML 500 MG IVPB (09:34)
== END 2025-02-05 23:59 | disposition home or self-care (01) ==
LOC: INF 01:55
PROVIDERS: PCP Family Medicine Adult Medicine; Visit Provider Nurse Practitioner Acute Care
DX: K50.818 Crohn's disease of both small and large intestine with other complication (principal)
CPT/HCPCS: 96365; J3380

== ENCOUNTER 2025-03-07 03:41 | Outpatient (CLI) | payer BC, SELFPAY ==
[2025-03-07] MEDS: VEDOLIZUMAB 300 MG in Normal Saline 250 ML 500 MG IVPB (08:49)
[2025-03-07] MEDS: Normal Saline Flush 10 ML SYR IVP (08:50)
[2025-03-07 08:52] LABS: HCT 40.5 % (36.0-46.0); HGB 13.5 g/dL (11.2-15.7); MCH 30.8 pg (27.0-33.0); MCHC 33.3 % (32.0-36.0); MCV 92 fL (80-95); MPV 11.0 fL (8.0-11.0); Platelet Count 193 10^3/uL (130-400); RBC 4.39 10^6/uL (3.93-5.22); RDW 12.8 % (11.7-14.6); RDW-SD 42.6 fL; WBC 5.86 10^3/uL (4.4-10.8)
[2025-03-07 09:12] LABS: ALT 39 U/L (14-59); AST 29 U/L (15-37); Albumin 3.6 g/dL (3.4-5.0); Alkaline Phosphatase 63 U/L (46-116); Bilirubin, Direct 0.2 mg/dL (0.0-0.2); Bilirubin, Total 0.7 mg/dL (0.2-1.0); Total Protein 7.1 g/dL (6.4-8.2)
[2025-03-07 09:14] LABS: C-Reactive Protein < 0.50 mg/dL (<or=0.5)
== END 2025-03-07 03:42 | disposition home or self-care (01) ==
PROVIDERS: PCP Family Medicine Adult Medicine; Visit Provider Nurse Practitioner Acute Care
DX: K50.919 Crohn's disease, unspecified, with unspecified complications (principal)
CPT/HCPCS: 36415; 80076; 85027; 96365; 86140; J3380

== ENCOUNTER 2025-05-01 03:16 | Outpatient (CLI) | payer BC, SELFPAY ==
[2025-05-01] MEDS: Normal Saline Flush 10 ML SYR IVP (13:02)
[2025-05-01] MEDS: VEDOLIZUMAB 300 MG in Normal Saline 250 ML 500 MG IVPB (13:02)
== END 2025-05-01 03:17 | disposition home or self-care (01) ==
LOC: INF 03:16
PROVIDERS: PCP Family Medicine Adult Medicine; Visit Provider Nurse Practitioner Acute Care
DX: K50.919 Crohn's disease, unspecified, with unspecified complications (principal)
CPT/HCPCS: 96365; J3380

== ENCOUNTER 2025-06-27 03:19 | Outpatient (CLI) | payer BC, SELFPAY ==
[2025-06-27] MEDS: VEDOLIZUMAB 300 MG in Normal Saline 250 ML 500 MG IVPB (11:55)
[2025-06-27] MEDS: Normal Saline Flush 10 ML SYR IVP (11:55)
== END 2025-06-27 03:20 | disposition home or self-care (01) ==
PROVIDERS: PCP Family Medicine Adult Medicine; Visit Provider Nurse Practitioner Acute Care
DX: K50.00 Crohn's disease of small intestine without complications (principal)
CPT/HCPCS: 96365; J3380